=== PATIENT | male | born 1950 | race Caucasian/White ===

== ENCOUNTER 2017-10-10 23:50 | Inpatient (IN) | payer OTHER ==
[2017-10-11] MEDS: hydrALAzine 20 MG INJ IV (00:58)
[2017-10-11] MEDS ORDERED: NACL 0.9% 3 ML SYG IV (01:30)
[2017-10-11] MEDS ORDERED: BISACODYL 10 MG SUPP PR (01:30)
[2017-10-11] MEDS ORDERED: DOCUSATE SODIUM 100 MG CAP PO (01:30)
[2017-10-11] MEDS ORDERED: ONDANSETRON 4 MG INJ IV (01:30)
[2017-10-11] MEDS ORDERED: ACETAMINOPHEN 325 MG TAB PO (01:30)
[2017-10-11 02:28] LABS: ADD MAN DIFF? NO
[2017-10-11 02:31] LABS: WHITE BLOOD COUNT 4.3 10^3/ul (4.8-10.8)
[2017-10-11 02:31] LABS: BASOPHILS % 0.7 % (0.0-2.0); EOSINOPHILS # 0.1 10^3/ul (0.0-0.5); EOSINOPHILS % 1.6 % (0.0-7.0); HEMATOCRIT 27.9 % (42.0-52.0); HEMOGLOBIN 9.9 g/dl (14.0-18.0); LYMPHOCYTES # 0.9 10^3/ul (0.8-2.9); MEAN CORPUSCULAR HGB CONC 35.5 g/dl (32.0-37.0); MEAN CORPUSCULAR VOLUME 87.5 fl (82.0-101.0); MEAN PLATELET VOLUME 9.8 fl (7.4-10.4); MONOCYTE # 0.5 10^3/ul (0.3-0.9); MONOCYTES % 12.1 % (0.0-11.0); NEUTROPHIL # 2.8 10^3/ul (1.6-7.5); NEUTROPHILS % 65.4 % (39.0-77.0); PLATELET COUNT 158 10^3/UL (140-415); RED BLOOD COUNT 3.19 10^6/ul (4.70-6.10); RED CELL DISTRIBUTION WIDTH 11.4 % (11.5-14.5)
[2017-10-11 02:49] LABS: ALANINE AMINOTRANSFERASE 24 IU/L (13-69); ALBUMIN 3.5 g/dl (3.3-4.9); ALKALINE PHOSPHATASE 190 IU/L (42-121); ANION GAP 15 (8-16); ASPARTATE AMINO TRANSFERASE 18 IU/L (15-46); BILIRUBIN,INDIRECT 0.3 mg/dl (0-1.1); BILIRUBIN,TOTAL 0.3 mg/dl (0.2-1.3); BLOOD UREA NITROGEN 35 mg/dl (7-20); CALCIUM 8.4 mg/dl (8.4-10.2); CARBON DIOXIDE 25 mmol/L (21-31); CHLORIDE 109 mmol/L (97-110); CHOL/HDL RATIO 4.4 RATIO; CHOLESTEROL 121 mg/dl (100-200); CREATINE KINASE 97 IU/L (23-200); CREATININE 1.45 mg/dl (0.61-1.24); GLUCOSE 268 mg/dl (70-220); HDL CHOLESTEROL 27 mg/dl (30-78); LDL CHOLESTEROL,CALCULATED 68 mg/dl; MAGNESIUM 1.9 mg/dl (1.7-2.5); POTASSIUM 3.9 mmol/L (3.5-5.1); SODIUM 145 mmol/L (135-144); TOTAL PROTEIN 6.4 g/dl (6.1-8.1); TRIGLYCERIDES 130 mg/dl (0-149)
[2017-10-11 02:49] LABS: ETHANOL < 10.0 mg/dl
[2017-10-11 03:00] LABS: CK INDEX 1.3; TROPONIN-I 0.031 ng/ml (0.000-0.120)
[2017-10-11 03:04] LABS: CK-MB 1.28 ng/ml (0.0-2.4)
[2017-10-11 03:05] LABS: HEMOGLOBIN A1C 8.3 % (0-5.9)
[2017-10-11] MEDS ORDERED: GLUCOSE GEL 15 GRAM TUBE BUCCAL (03:30)
[2017-10-11] MEDS ORDERED: GLUCOSE GEL 15 GRAM TUBE PO ×2 (03:30)
[2017-10-11] MEDS ORDERED: DEXTROSE 50% 50 ML SYRINGE IV ×2 (03:30)
[2017-10-11] MEDS ORDERED: GLUCAGON 1 MG INJ IM (03:30)
[2017-10-11 04:07] LABS: B-TYPE NATRIURETIC PEPTIDE 1070 PG/ML (0-125)
[2017-10-11] MEDS: AMLODIPINE 5 MG TAB NGT ×2 (04:16→04:42)
[2017-10-11 05:09] LABS: THYROID STIMULATING HORMONE 0.218 MIU/L (0.465-4.680)
[2017-10-11] MEDS: PANTOPRAZOLE (EC) 40 MG TAB PO (05:56)
[2017-10-11] MEDS: INSULIN ASPART [NOVOLOG] 3 ML PEN SC ×4 (08:06→20:20)
[2017-10-11 08:57] LABS: ADD MAN DIFF? NO
[2017-10-11 08:58] LABS: BASOPHILS % 0.7 % (0.0-2.0); EOSINOPHILS # 0.1 10^3/ul (0.0-0.5); EOSINOPHILS % 1.6 % (0.0-7.0); HEMATOCRIT 27.5 % (42.0-52.0); HEMOGLOBIN 9.8 g/dl (14.0-18.0); LYMPHOCYTES % 22.6 % (15.0-51.0); MEAN CORPUSCULAR HEMOGLOBIN 31.5 pg (29.0-33.0); MEAN CORPUSCULAR HGB CONC 35.6 g/dl (32.0-37.0); MEAN CORPUSCULAR VOLUME 88.4 fl (82.0-101.0); MEAN PLATELET VOLUME 10.2 fl (7.4-10.4); MONOCYTE # 0.6 10^3/ul (0.3-0.9); MONOCYTES % 12.5 % (0.0-11.0); NEUTROPHIL # 2.8 10^3/ul (1.6-7.5); NEUTROPHILS % 62.2 % (39.0-77.0); PLATELET COUNT 162 10^3/UL (140-415); RED BLOOD COUNT 3.11 10^6/ul (4.70-6.10); RED CELL DISTRIBUTION WIDTH 11.9 % (11.5-14.5)
[2017-10-11 08:58] LABS: WHITE BLOOD COUNT 4.5 10^3/ul (4.8-10.8)
[2017-10-11 09:34] LABS: FREE T4 (FREE THYROXINE) 1.49 ng/dl (0.78-2.44)
[2017-10-11] MEDS: DEXTROSE 5%-0.45% NACL 500 ML BAG IV (09:34)
[2017-10-11 09:35] LABS: CREATINE KINASE 81 IU/L (23-200); IRON 65 ug/dl (35-150)
[2017-10-11] MEDS: GABAPENTIN 100 MG CAP PO ×3 (09:35→20:16)
[2017-10-11] MEDS: MULTIVITAMINS THERAPEUTIC TAB PO (09:35)
[2017-10-11] MEDS: AMLODIPINE 5 MG TAB PO (09:35)
[2017-10-11] MEDS: FOLIC ACID 1 MG TAB PO (09:35)
[2017-10-11 09:45] LABS: % IRON SATURATION 23 % SAT (22-52); TOTAL IRON BINDING CAPACITY 277 ug/dl (241-421)
[2017-10-11 09:48] LABS: CK INDEX 1.3
[2017-10-11 09:49] LABS: FREE T3 4.95 pg/ml (2.77-5.27)
[2017-10-11 09:49] LABS: CK-MB 1.04 ng/ml (0.0-2.4)
[2017-10-11] MEDS: INSULIN GLARGINE [LANtus] 3 ML PEN SC ×2 (09:53→20:20)
[2017-10-11 10:38] LABS: FOLATE > 20.0 ng/ml (2.8-20.0)
[2017-10-11 13:05] LABS: AMPHETAMINE/METHAMPHETAMINE Negative (NEGATIVE); BARBITURATES Negative (NEGATIVE); BENZODIAZEPINES Negative (NEGATIVE); CANNABINOIDS Negative (NEGATIVE); COCAINE Negative (NEGATIVE); OPIATES Negative (NEGATIVE)
[2017-10-11] MEDS: traZODone 50 MG TAB PO (20:16)
[2017-10-11] MEDS: TAMSULOSIN (SR) 0.4 MG CAP PO (20:16)
[2017-10-12] MEDS: NIFEdipine 10 MG CAP PO ×3 (00:10→12:00)
[2017-10-12] MEDS: THIAMINE 100 MG TAB PO (08:38)
[2017-10-12] MEDS: MULTIVITAMINS THERAPEUTIC TAB PO (08:38)
[2017-10-12] MEDS: GABAPENTIN 100 MG CAP PO ×3 (08:38→20:36)
[2017-10-12] MEDS: FOLIC ACID 1 MG TAB PO (08:38)
[2017-10-12] MEDS: FUROSEMIDE 40 MG TAB PO (08:39)
[2017-10-12] MEDS: INSULIN GLARGINE [LANtus] 3 ML PEN SC ×2 (08:42→20:33)
[2017-10-12] MEDS: INSULIN ASPART [NOVOLOG] 3 ML PEN SC ×4 (08:43→20:34)
[2017-10-12] MEDS: NIFEdipine (XL) 30 MG TAB PO (17:15)
[2017-10-12] MEDS: ASPIRIN 81 MG TAB PO (17:16)
[2017-10-12] MEDS: hydrALAzine 20 MG INJ IV (20:27)
[2017-10-12] MEDS: traZODone 50 MG TAB PO (20:36)
[2017-10-12] MEDS: TAMSULOSIN (SR) 0.4 MG CAP PO (20:36)
[2017-10-13 06:47] LABS: ANION GAP 15 (8-16); BLOOD UREA NITROGEN 26 mg/dl (7-20); CARBON DIOXIDE 28 mmol/L (21-31); CHLORIDE 108 mmol/L (97-110); CREATININE 1.76 mg/dl (0.61-1.24); GLUCOSE 95 mg/dl (70-220); MAGNESIUM 1.8 mg/dl (1.7-2.5); PHOSPHORUS 4.9 mg/dl (2.5-4.9); POTASSIUM 4.5 mmol/L (3.5-5.1); SODIUM 146 mmol/L (135-144)
[2017-10-13] MEDS: THIAMINE 100 MG TAB PO (08:04)
[2017-10-13] MEDS: ASPIRIN 81 MG TAB PO (08:04)
[2017-10-13] MEDS: MULTIVITAMINS THERAPEUTIC TAB PO (08:04)
[2017-10-13] MEDS: GABAPENTIN 100 MG CAP PO ×3 (08:04→20:43)
[2017-10-13] MEDS: INSULIN ASPART [NOVOLOG] 3 ML PEN SC ×4 (08:04→20:44)
[2017-10-13] MEDS: FOLIC ACID 1 MG TAB PO (08:04)
[2017-10-13] MEDS: NIFEdipine (XL) 30 MG TAB PO (08:05)
[2017-10-13 14:23] LABS: NIL 0.04 IU/mL; QUANTIFERON(R)-TB GOLD POSITIVE (NEGATIVE); TB-NIL 0.98 IU/mL
[2017-10-13 17:07] LABS: ADD UMIC YES; UR ASCORBIC ACID NEGATIVE (NEGATIVE); UR BACTERIA FEW /HPF (NONE SEEN); UR BILIRUBIN (Dip) NEGATIVE (NEGATIVE); UR BLOOD (Dip) NEGATIVE (NEGATIVE); UR CLARITY SLIGHTLY CLOUDY (CLEAR); UR COLOR YELLOW (YELLOW); UR GLUCOSE (Dip) 2+ mg/dL (NEGATIVE); UR KETONES (Dip) NEGATIVE (NEGATIVE); UR LEUKOCYTE ESTERASE (Dip) NEGATIVE Leu/ul (NEGATIVE); UR NITRITE (Dip) NEGATIVE (NEGATIVE); UR RBC 2 /HPF (0-5); UR SPECIFIC GRAVITY (Dip) 1.013 (1.003-1.030); UR TOTAL PROTEIN (Dip) 2+ mg/dl (NEGATIVE); UR UROBILINOGEN (Dip) NEGATIVE (NEGATIVE); UR WBC 0 /HPF (0-5)
[2017-10-13 17:26] LABS: CREATININE,URINE RANDOM 93.02 mg/dl (20-370)
[2017-10-13 17:26] LABS: SODIUM,URINE RANDOM 30 mmol/L (30-90)
[2017-10-13] MEDS: INSULIN GLARGINE [LANtus] 3 ML PEN SC (20:42)
[2017-10-13] MEDS: TAMSULOSIN (SR) 0.4 MG CAP PO (20:43)
[2017-10-13] MEDS: traZODone 50 MG TAB PO (20:43)
[2017-10-13] MEDS: hydrALAzine 20 MG INJ IV (20:47)
[2017-10-14 06:23] LABS: ANION GAP 14 (8-16); BLOOD UREA NITROGEN 32 mg/dl (7-20); CALCIUM 8.8 mg/dl (8.4-10.2); CARBON DIOXIDE 26 mmol/L (21-31); CHLORIDE 109 mmol/L (97-110); CREATININE 1.45 mg/dl (0.61-1.24); GLUCOSE 185 mg/dl (70-220); MAGNESIUM 1.9 mg/dl (1.7-2.5); PHOSPHORUS 4.7 mg/dl (2.5-4.9); POTASSIUM 4.4 mmol/L (3.5-5.1); SODIUM 145 mmol/L (135-144)
[2017-10-14] MEDS: INSULIN ASPART [NOVOLOG] 3 ML PEN SC ×4 (08:35→21:00)
[2017-10-14] MEDS: GABAPENTIN 100 MG CAP PO ×3 (08:52→21:08)
[2017-10-14] MEDS: MULTIVITAMINS THERAPEUTIC TAB PO (08:52)
[2017-10-14] MEDS: ASPIRIN 81 MG TAB PO (08:53)
[2017-10-14] MEDS: THIAMINE 100 MG TAB PO (08:53)
[2017-10-14] MEDS: NIFEdipine (XL) 30 MG TAB PO (08:53)
[2017-10-14] MEDS: FOLIC ACID 1 MG TAB PO (08:53)
[2017-10-14] MEDS: hydrALAzine 20 MG INJ IV (14:33)
[2017-10-14] MEDS: traZODone 50 MG TAB PO (21:08)
[2017-10-14] MEDS: TAMSULOSIN (SR) 0.4 MG CAP PO (21:08)
[2017-10-14] MEDS: INSULIN GLARGINE [LANtus] 3 ML PEN SC (22:26)
[2017-10-15 06:37] LABS: ANION GAP 12 (8-16); BLOOD UREA NITROGEN 36 mg/dl (7-20); CALCIUM 9.1 mg/dl (8.4-10.2); CARBON DIOXIDE 29 mmol/L (21-31); CHLORIDE 110 mmol/L (97-110); CREATININE 1.45 mg/dl (0.61-1.24); GLUCOSE 219 mg/dl (70-220); MAGNESIUM 1.9 mg/dl (1.7-2.5); POTASSIUM 4.5 mmol/L (3.5-5.1); SODIUM 146 mmol/L (135-144)
[2017-10-15 08:16] LABS: VITAMIN B1 (THIAMINE) 125 nmol/L (78-185)
[2017-10-15] MEDS: GABAPENTIN 100 MG CAP PO ×3 (08:16→20:42)
[2017-10-15] MEDS: ASPIRIN 81 MG TAB PO (08:16)
[2017-10-15] MEDS: FOLIC ACID 1 MG TAB PO (08:16)
[2017-10-15] MEDS: THIAMINE 100 MG TAB PO (08:16)
[2017-10-15] MEDS: MULTIVITAMINS THERAPEUTIC TAB PO (08:16)
[2017-10-15] MEDS: NIFEdipine (XL) 60 MG TAB PO (08:16)
[2017-10-15] MEDS: INSULIN ASPART [NOVOLOG] 3 ML PEN SC ×4 (08:23→21:00)
[2017-10-15] MEDS: hydrALAzine 20 MG INJ IV (10:30)
[2017-10-15] MEDS: traZODone 50 MG TAB PO (20:42)
[2017-10-15] MEDS: TAMSULOSIN (SR) 0.4 MG CAP PO (20:42)
[2017-10-15] MEDS: INSULIN GLARGINE [LANtus] 3 ML PEN SC (21:15)
[2017-10-16] MEDS: INSULIN ASPART [NOVOLOG] 3 ML PEN SC ×2 (08:04→12:19)
[2017-10-16] MEDS: ASPIRIN 81 MG TAB PO (09:18)
[2017-10-16] MEDS: FOLIC ACID 1 MG TAB PO (09:19)
[2017-10-16] MEDS: MULTIVITAMINS THERAPEUTIC TAB PO (09:19)
[2017-10-16] MEDS: GABAPENTIN 100 MG CAP PO ×2 (09:19→12:05)
[2017-10-16] MEDS: NIFEdipine (XL) 60 MG TAB PO (09:20)
[2017-10-16] MEDS: THIAMINE 100 MG TAB PO (09:20)
== END 2017-10-16 15:35 | disposition home or self-care (01) | DRG 305 ==
LOC: MS2 10-12 01:07 → TEL 23:50 → MS2 10-12 13:45
DX: I16.0 Hypertensive urgency (principal); N17.9 Acute kidney failure, unspecified; E87.5 Hyperkalemia; N40.0 Benign prostatic hyperplasia without lower urinary tract symptoms; E11.22 Type 2 diabetes mellitus with diabetic chronic kidney disease; I12.9 Hypertensive chronic kidney disease with stage 1 through stage 4 chronic kidney disease, or unspecified chronic kidney disease; N18.9 Chronic kidney disease, unspecified; Z79.4 Long term (current) use of insulin; Z87.820 Personal history of traumatic brain injury
CPT/HCPCS: 70450; 71045; 76775; 80048; 80053; 80061; 80307; 81001; 81003; 82306; 82540; 82550; 82553; 82607; 82652; 82746; 82962; 83036; 83540; 83735; 83880; 84100; 84155; 84300; 84425; 84439; 84443; 84481; 84484; 85025; 86480; 93005; 93306; 93880; 97116; 97163; 97530